=== PATIENT | female | born 1985 | race Caucasian/White ===

== ENCOUNTER 2016-06-26 18:49 | Emergency (ER) | payer OTHER ==
[2016-06-26 19:12] VITALS: BP 98/60; PULSE 107; TEMP 98.9; BMI 26.4
--- NOTE | 2016-06-26 19:12 | PDOC ---
Rapid Medical Evaluation Chief Complaint: Cold Symptoms Time Seen by Provider: 06/26/16 19:09 Medical Evaluation: I have performed a brief in-person evaluation of this patient. The patient presents with a chief complaint of: 30 yo F with flu-like symptoms for past two days. Congestion, cough, fever. I have ordered the following: UCG. The patient will proceed to the ED for further evaluation.
--- NOTE | 2016-06-26 20:47 | PDOC ---
History of Present Illness - General Chief Complaint: Cold Symptoms Stated Complaint: COLD SYMPTOMS Time Seen by Provider: 06/26/16 19:09 History Source: Patient Exam Limitations: No Limitations - History of Present Illness Initial Comments: 06/26/16 20:43 Patient here with complaints of acute onset of total body aches, sore throat pain, earache, runny nose and a moist cough with yellow productive phlegm. States fevers were high and is been using ibuprofen with some relief fever relief. Did not take temperature at home. No one else at home is sick. Timing/Duration: reports: constant, changing over time, getting worse Severity: reports: moderate Associated Symptoms: reports: chest pain/soreness, cough, earache, fever/chills , headache, nasal congestion, sore throat Past History - Travel Traveled outside of the country in the last 30 days: No Close contact w/someone who was outside of country & ill: No - Past Medical History Allergies/Adverse Reactions: Allergies Allergy/AdvReac Type Severity Reaction Status Date / Time No Known Allergies Allergy Verified 06/26/16 19:06 Home Medications: Ambulatory Orders Oseltamivir Phosphate [Tamiflu] 75 mg PO BID #10 capsule 06/26/16 Other medical history: denies - Psycho/Social/Smoking Cessation Hx Suicidal Ideation: No Smoking History: Never smoked Respiratory Specific PMHX - Complaint Specific PMHX Bronchitis: No Pneumonia: No Pulmonary Embolus: No Review of Systems - Review of Systems Able to Perform ROS?: Yes Is the patient limited Beninese proficient: Yes Constitutional: Yes: Symptoms Reported, See HPI, Chills, Fever, Malaise, Weakness HEENTM: Yes: Symptoms Reported, See HPI, Ear Pain, Nose Congestion, Throat Pain , Throat Swelling Respiratory: Yes: Symptoms reported, See HPI, Cough Cardiac (ROS): No: Symptoms Reported ABD/GI: No: Symptoms Reported : No: Symptoms Reported Musculoskeletal: Yes: Symptoms Reported, Muscle Pain Integumentary: No: Symptoms Reported *Physical Exam - Vital Signs Last Vital Signs Temp Pulse Resp BP Pulse Ox 98.9 F 107 H 16 98/60 97 06/26/16 19:07 06/26/16 19:07 06/26/16 19:07 06/26/16 19:07 06/26/16 19:07 - Physical Exam General Appearance: Yes: Nourished, Appropriately Dressed, Apparent Distress, Mild Distress, Moderate Distress HEENT: positive: REEMA, TMs Normal, Pharynx Normal (mild erythema, with no exudate), Pharyngeal Erythema, Nasal Congestion, Rhinorrhea Neck: positive: Supple, Lymphadenopathy (R), Lymphadenopathy (L) Respiratory/Chest: positive: Lungs Clear (but coarse breath sounds). negative: Normal Breath Sounds, Rhonchi, Wheezing Gastrointestinal/Abdominal: positive: Soft. negative: Tender Extremity: positive: Normal Capillary Refill, Normal Inspection, Normal Range of Motion Integumentary: positive: Normal Color, Dry, Pale Neurologic: positive: consulting solution manager II-XII NML intact, Fully Oriented, Alert, Normal Mood/ Affect (appears uncomfortable) ED Treatment Course - ADDITIONAL ORDERS Additional order review: Laboratory Results 06/26/16 19:12 Urine HCG, Qual Negative Progress Note - Progress Note Progress Note: Upper respiratory illness, probable influenza will treat with Tamiflu *DC/Admit/Observation/Transfer Diagnosis at time of Disposition: Influenzal acute upper respiratory infection - Discharge Dispostion Disposition: HOME Condition at time of disposition: Stable Admit: No - Patient Instructions Printed Discharge Instructions: DI for Viral Upper Respiratory Infection -- Adult Additional Instructions: Rest, drink lots of fluids: Teas, water, soups, Pedialyte Saltwater gargles Steamy showers/seem to face break up mucus Old-fashioned treatments help! Avoid contact with others until fevers and cough resolved as this is very contagious Lots of handwashing and good hygiene Continue [id number] medications for symptomatic relief Tylenol or Motrin for fever and pain Take all of Tamiflu as directed: 1 tab every 12 hours for 5 days Followup with private physician in one to 2 days as needed or if worsening Return to emergency department for worsened symptoms, fevers, dehydration Influenza takes between 5 and 7 days for resolution To not participate in any activity, work, or school until fevers and cough are gone for at least one day
== END 2016-06-26 20:48 | disposition home or self-care (01) ==
LOC: JERFT 18:49 → JER 18:49 → JERFT 20:48
DX: J11.1 Influenza due to unidentified influenza virus with other respiratory manifestations (principal)
CPT/HCPCS: 84703; 99281-25